=== PATIENT | female | born 1985 | race Caucasian/White ===

== ENCOUNTER 2016-07-08 11:20 | Emergency (ER) | payer OTHER | END 2016-07-08 13:17 | disposition home or self-care (01) | LOC: FER 11:20 | DX: J40 Bronchitis, not specified as acute or chronic (principal); F17.210 Nicotine dependence, cigarettes, uncomplicated | CPT/HCPCS: 87450; 87804; 87899; 94640 ==

== ENCOUNTER 2020-09-30 11:06 | Emergency (ER) | payer OTHER ==
[~2020-09-30 11:06] MED LIST: SUBOXONE 8 MG-1 EACH PO
[2020-09-30] MEDS ORDERED: BACTRIM DS TAB1 EACH PO (13:24)
== END 2020-09-30 13:27 | disposition home or self-care (01) ==
LOC: FER 11:06
DX: K04.7 Periapical abscess without sinus (principal); K03.81 Cracked tooth
CPT/HCPCS: 99282; Q0163